=== PATIENT | female | born 1930 | race Caucasian/White ===

== ENCOUNTER 2016-11-09 14:25 | Outpatient (CLI) | payer MEDICARE | END 2016-11-09 14:26 | disposition short-term general hospital (02) | DX: R41.82 Altered mental status, unspecified (principal) | CPT/HCPCS: A0425; A0429 ==

== ENCOUNTER 2017-04-23 16:08 | Outpatient (CLI) | payer MEDICARE | END 2017-04-23 16:09 | disposition short-term general hospital (02) | LOC: EMS 16:08 | PROVIDERS: ATTEND Surgery | DX: R11.2 Nausea with vomiting, unspecified (principal); R50.9 Fever, unspecified | CPT/HCPCS: A0425; A0427 ==